=== PATIENT | male | born 1940 | race Caucasian/White ===

== ENCOUNTER → 2016-09-24 | Outpatient (CLI) | payer MEDICARE, BC ==
[2013-09-14 15:05] VITALS: BP 137/53
[~2016-09-24] MED LIST: ACET500T68 PO; ASPI-630 PO; ASPI325T8 PO; ATOR20TA58 PO; BIMA2.5D OP; CARV12.52 PO; CLON0.2T PO; DILT300C4 PO; DUTA1CPM PO; GLYB5TAB3 PO; LISI1TAB7 PO; METF500T4 PO; MORP15TA3 PO; MULT-18 PO; OMEP40CA5 PO; OXYB10TA PO; PRAS10TA9 PO; SITA100T PO; TRAM50TA PO; VITA400C36 PO; VITA400C6 PO
--- NOTE | 2016-09-24 15:40 | KCIC ---
Renal ultrasound History: Benign prostatic hypertrophy. Overactive bladder. Incontinence. Technique: Sonographic imaging of both kidneys. Findings: Aorta: Obscured and not visualized. Inferior vena cava: Not visualized. Right kidney measures 10.7 cm. No evidence of hydronephrosis, shadowing calculus or renal lesion. Left kidney measures 11.3 cm. No evidence of hydronephrosis, shadowing calculus or renal lesion. Urinary bladder: Poor visualization due to lack of distention. Impression: No sonographic abnormality of either kidney. Electronically signed by: Ryan Thornton MD (09/24/2016 3:37 PM) [id number]
== END | disposition home or self-care (01) ==
LOC: KCIC US 14:56
PROVIDERS: ATTEND Urology
DX: N40.1 Benign prostatic hyperplasia with lower urinary tract symptoms (principal); N32.81 Overactive bladder; I10 Essential (primary) hypertension; E11.9 Type 2 diabetes mellitus without complications; R32 Unspecified urinary incontinence
CPT/HCPCS: 76770